=== PATIENT | male | born 1955 | race Caucasian/White ===

== ENCOUNTER 2023-02-18 10:43 | Emergency (ER) | payer SELFPAY ==
[~2023-02-18] VITALS: Ht 167.6 cm; Wt 68.0 kg
[~2023-02-18 10:43] MED LIST: ALBU6.7H3 IH; DIPH50CA41 PO; P20 PO
[2023-02-18 10:47] VITALS: O2SAT 98
[2023-02-18 11:46] LABS: CLARITY URINE CLEAR (CLEAR); COLOR URINE YELLOW (YELLOW); GLUCOSE URINE NEGATIVE (NEGATIVE); KETONES URINE NEGATIVE (NEGATIVE); LEUKOCYTE ESTERASE URINE NEGATIVE (NEGATIVE); NITRITE URINE NEGATIVE (NEGATIVE); OCCULT BLOOD URINE 3+ (NEGATIVE); PROTEIN URINE NEGATIVE (NEGATIVE); SPECIFIC GRAVITY URINE 1.008 (1.005-1.030); UROBILINOGEN URINE 0.2 E.U./dL (0.2-1.0)
[2023-02-18 11:49] LABS: YEAST URINE NONE SEEN
[2023-02-18 12:00] LABS: BACTERIA URINE FEW; RBC URINE 15-25 /hpf (0-2); SQUAMOUS EPITHELIAL CELL URINE RARE /lpf (RARE/1+); WBC URINE 0-2 /hpf (0-2)
[2023-02-18 12:43] VITALS: BP 134/78; PULSE 108; RESP 20; TEMP 98.5
== END 2023-02-18 12:42 | disposition home or self-care (01) ==
LOC: ER 10:57
DX: R33.9 Retention of urine, unspecified (principal)
CPT/HCPCS: 81003; 99283; A4315